=== PATIENT | female | born 1965 | race Caucasian/White ===

== ENCOUNTER 2021-10-12 21:04 | Emergency (ER) | payer OTHER ==
[~2021-10-12] VITALS: Ht 165.1 cm; Wt 113.4 kg
[2021-10-12 22:13] LABS: BASOPHILS ABSOLUTE AUTO 0.04 K/mm3 (0.00-0.23); BASOPHILS PERCENT AUTO 1 % (0-2); EOSINOPHILS ABSOLUTE AUTO 0.44 K/mm3 (0.00-0.68); EOSINOPHILS PERCENT AUTO 6 % (0-6); Hematocrit 39.9 % (33.0-51.0); Hemoglobin 13.7 g/dL (11.5-16.0); IMMATURE GRAN ABSOLUTE AUTO 0.07 K/mm3 (0.00-0.10); IMMATURE GRAN PERCENT AUTO 1 % (0-1); LYMPHOCYTES ABSOLUTE AUTO 2.58 K/mm3 (0.84-5.20); LYMPHOCYTES PERCENT AUTO 34 % (21-46); MONOCYTES ABSOLUTE AUTO 0.59 K/mm3 (0.16-1.47); MONOCYTES PERCENT AUTO 8 % (4-13); Mean Corpuscular HGB 29.8 pg (26.0-34.0); Mean Corpuscular HGB Conc 34.3 g/dL (31.5-36.5); Mean Corpuscular Volume 87 fL (80-100); Mean Platelet Volume 9.6 fL (9.1-12.4); NEUTROPHILS PERCENT AUTO 51 % (41-73); Platelet Count 182 K/mm3 (150-400); RDW Coefficient Variation 13.2 % (11.7-14.2); RDW Standard Deviation 41.1 fL (35.1-46.3); Red Blood Cell Count 4.59 M/mm3 (3.80-5.20); White Blood Cell Count 7.52 K/mm3 (4.00-11.30)
[2021-10-12 22:31] LABS: Albumin, Blood 3.2 g/dL (3.4-5.0); Albumin/Globulin Ratio 1.1 (0.8-1.8); Bilirubin, Total 0.3 mg/dL (0.1-1.0); Bun/Creatinine Ratio 21.3 (12.0-20.0); Calcium, Blood 9.2 mg/dL (8.5-10.1); Creatinine, Blood 0.89 mg/dL (0.40-1.00); Potassium, Blood 4.2 mmol/L (3.5-5.5); Total Protein, Blood 6.2 g/dL (6.4-8.2)
[2021-10-13] MEDS ORDERED: ONDA4ODT MM (02:19)
== END 2021-10-13 02:35 | disposition home or self-care (01) ==
LOC: ER 21:04
PROVIDERS: Student in an Organized Health Care Education/Training Program
DX: R11.2 Nausea with vomiting, unspecified (principal); L53.9 Erythematous condition, unspecified; Z86.16 Personal history of COVID-19
CPT/HCPCS: 36415; 80053; 85025; 93971; 96374; 99284-25; J2405

== ENCOUNTER 2023-01-10 13:17 | Emergency (ER) | payer OTHER ==
[~2023-01-10] VITALS: Ht 165.1 cm; Wt 61.2 kg
[~2023-01-10 13:17] MED LIST: GABA300 PO; HYDCHL25 PO; OMEP20ER PO; ONDA4ODT MM; Prinivil10 MG PO; VENL150ER PO
[2023-01-10 13:41] VITALS: BP 138/91
== END 2023-01-10 17:36 | disposition home or self-care (01) ==
LOC: ER 13:17
DX: S01.01XA Laceration without foreign body of scalp, initial encounter (principal); Z23 Encounter for immunization; W01.10XA Fall on same level from slipping, tripping and stumbling with subsequent striking against unspecified object, initial encounter; Z79.899 Other long term (current) drug therapy; Z85.3 Personal history of malignant neoplasm of breast
CPT/HCPCS: 12001; 70450; 90471; 90715; 99284-25

== ENCOUNTER 2023-03-14 11:48 | Day surgery (SDC) | payer OTHER ==
[2023-03-13 14:41] LABS: BASOPHILS ABSOLUTE AUTO 0.05 K/mm3 (0.00-0.23); BASOPHILS PERCENT AUTO 1 % (0-2); EOSINOPHILS ABSOLUTE AUTO 0.66 K/mm3 (0.00-0.68); EOSINOPHILS PERCENT AUTO 7 % (0-6); Hematocrit 41.5 % (33.0-51.0); Hemoglobin 13.6 g/dL (11.5-16.0); IMMATURE GRAN ABSOLUTE AUTO 0.02 K/mm3 (0.00-0.10); IMMATURE GRAN PERCENT AUTO 0 % (0-1); LYMPHOCYTES ABSOLUTE AUTO 2.58 K/mm3 (0.84-5.20); LYMPHOCYTES PERCENT AUTO 26 % (21-46); MONOCYTES ABSOLUTE AUTO 0.55 K/mm3 (0.16-1.47); MONOCYTES PERCENT AUTO 6 % (4-13); Mean Corpuscular HGB 27.4 pg (26.0-34.0); Mean Corpuscular HGB Conc 32.8 g/dL (31.5-36.5); Mean Corpuscular Volume 84 fL (80-100); Mean Platelet Volume 10.3 fL (9.1-12.4); NEUTROPHILS ABSOLUTE AUTO 5.95 K/mm3 (1.96-9.15); NEUTROPHILS PERCENT AUTO 61 % (41-73); Platelet Count 256 K/mm3 (150-400); RDW Coefficient Variation 14.5 % (11.7-14.2); RDW Standard Deviation 44.5 fL (35.1-46.3); Red Blood Cell Count 4.96 M/mm3 (3.80-5.20); White Blood Cell Count 9.81 K/mm3 (4.00-11.30)
[2023-03-13 18:30] LABS: Calcium, Blood 9.2 mg/dL (8.5-10.1); Creatinine, Blood 0.68 mg/dL (0.40-1.00); Potassium, Blood 3.7 mmol/L (3.5-5.5)
[~2023-03-14] VITALS: Ht 165.1 cm; Wt 104.6 kg
[2023-03-14] VITALS (17 sets, daily range): BP systolic 119–164; BP diastolic 63–138
--- NOTE | 2023-03-14 14:07 | NUR ---
Ambulatory in Day Surgery. History, Chart, Medications and Allergies reviewed before start of procedure. Lungs clear T/O to Auscultation. Patient confirms NPO status and agrees with scheduled surgery. Pre-Op teaching done. Pt verbalizes understanding. Patient States Post-Procedure ride home has been arranged. PT BELONGINGS PLACED [facility] FOR SAFEKEEPING.
--- NOTE | 2023-03-14 14:18 | NUR ---
RN ABLE TO DRAW 2ML OF BLOOD FROM 20G IV FOR TYPE CHECK BUT BLEW AFTER WITH NS FLUSH. IV D/C AND WARM BLANKET PROVIDED. PT TOLERATED WELL.
--- NOTE | 2023-03-14 14:19 | NUR ---
BAG WITH PT PURSE GIVEN TO PT FOR SAFEKEEPING.
--- NOTE | 2023-03-14 14:43 | NUR ---
PT GLASSES AND PARTIALS TAKEN TO PACU FOR SAFEKEEPING.
--- NOTE | 2023-03-14 19:04 | NUR ---
SHIFT SUMMARY PT ARRIVED TO THE ROOM AT APPROXIMATELY 1830. PT ALERT AND ORIENTED AT TIME OF ARRIVAL TO THE ROOM. PT STATES PAIN IS MANAGED AT 4/10. PT ON RA AND TOLERATING WELL. PT TOLERATING SIPS OF CLEARS. PT EDUCATED TO USE HER CALL LIGHT. PT'S IS AT THE BEDSIDE. BEDSIDE REPORT GIVEN TO GAYLE JIMENEZ.
[2023-03-15 03:21] VITALS: BP 127/89
--- NOTE | 2023-03-15 05:12 | NUR ---
SHIFT SUMMARY POD 1 LAP HYSTERECTOMY PT ABLE TO SLEEP T/O NIGHT. DENIES ANY PAIN. B[place]LETT TAKEN OUT AT 0200. AWAITNG FIRST VOID AFTER REMOVAL. PT UP AND WALKING THE ALBRECHT, SBA. 4 LAP SITES TO ABD, C/D/I. SCANT AMOUNT OF BLEEDING ON PERIPAD. TOLERTAING PO INTAKE. NO OTHER CONCERNS AT THIS TIME. CALL LIGHT WITHIN REACH
[2023-03-15 06:21] VITALS: BP 128/85
[2023-03-15 06:28] LABS: BASOPHILS ABSOLUTE AUTO 0.02 K/mm3 (0.00-0.23); BASOPHILS PERCENT AUTO 0 % (0-2); EOSINOPHILS ABSOLUTE AUTO 0.02 K/mm3 (0.00-0.68); EOSINOPHILS PERCENT AUTO 0 % (0-6); Hematocrit 39.4 % (33.0-51.0); Hemoglobin 12.5 g/dL (11.5-16.0); IMMATURE GRAN ABSOLUTE AUTO 0.06 K/mm3 (0.00-0.10); IMMATURE GRAN PERCENT AUTO 0 % (0-1); LYMPHOCYTES ABSOLUTE AUTO 1.64 K/mm3 (0.84-5.20); LYMPHOCYTES PERCENT AUTO 12 % (21-46); MONOCYTES ABSOLUTE AUTO 0.75 K/mm3 (0.16-1.47); MONOCYTES PERCENT AUTO 5 % (4-13); Mean Corpuscular HGB 27.1 pg (26.0-34.0); Mean Corpuscular HGB Conc 31.7 g/dL (31.5-36.5); Mean Corpuscular Volume 86 fL (80-100); Mean Platelet Volume 10.8 fL (9.1-12.4); NEUTROPHILS ABSOLUTE AUTO 11.73 K/mm3 (1.96-9.15); NEUTROPHILS PERCENT AUTO 83 % (41-73); Platelet Count 241 K/mm3 (150-400); RDW Coefficient Variation 14.3 % (11.7-14.2); RDW Standard Deviation 44.6 fL (35.1-46.3); Red Blood Cell Count 4.61 M/mm3 (3.80-5.20); White Blood Cell Count 14.22 K/mm3 (4.00-11.30)
[2023-03-15] MEDS ORDERED: PROMETHAZINE12.5 M1 PO (13:44)
[2023-03-15] MEDS ORDERED: Percocet 5-3251 EACH PO (13:45)
[2023-03-15] MEDS ORDERED: SIME80CH PO (13:46)
--- NOTE | 2023-03-15 14:51 | NUR ---
DISCHARGE SUMMARY PATIENT DISCHARGED AT APPROX 1350. A/O X4- POD1 LAP SOLOMON HYSTER W/ 4X ABDOMINAL LAP SITES, C/D/I WITH DERMABOND. ABDOMINAL BAND IN PLACE. IV REMOVED W/ CATH TIP INTACT. TOLERATING PO INTAKE AND VOIDING WELL. PAIN MANAGED W/ PO PAIN MEDICATIONS. WRITTEN AND VERBAL DISCHARGE INSTRUCTIONS GIVEN, PATIENT AGREEABLE TO DISCHARGE. WHEELED OUT TO VEHICLE W/ SPOUSE.
== END 2023-03-15 14:03 | disposition home or self-care (01) ==
LOC: ORSCMMR 11:48 → ORD 13:30 → SURS 18:46 → ORSCMMR 03-15 14:03 → ORD 04-25 13:00
PROVIDERS: Obstetrics & Gynecology
PROC: 0UT94ZZ Resection of Uterus, Percutaneous Endoscopic Approach (ICD-10-PCS; principal; 2023-03-15)
PROC: 0UB74ZZ Excision of Bilateral Fallopian Tubes, Percutaneous Endoscopic Approach (ICD-10-PCS; principal; 2023-03-15)
PROC: 0UB24ZZ Excision of Bilateral Ovaries, Percutaneous Endoscopic Approach (ICD-10-PCS; principal; 2023-03-15)
PROC: 8E0W8CZ Robotic Assisted Procedure of Trunk Region, Via Natural or Artificial Opening Endoscopic (ICD-10-PCS; principal; 2023-03-15)
DX: N95.0 Postmenopausal bleeding (principal); D25.9 Leiomyoma of uterus, unspecified; N80.03 Adenomyosis of the uterus; N80.359 Endometriosis of pelvic sidewall, unspecified side, unspecified depth; I10 Essential (primary) hypertension; F32.A Depression, unspecified; Z86.16 Personal history of COVID-19; Z85.3 Personal history of malignant neoplasm of breast; Z79.899 Other long term (current) drug therapy; Z87.891 Personal history of nicotine dependence
CPT/HCPCS: 36415; 80048; 85025; 86850; 86900; 86901; 88307; A9270; J0690; J1100; J1885; J2250; J2371; J2405; J2704; J3010; J7120